=== PATIENT | female | born 1980 | race Caucasian/White ===

== ENCOUNTER 2021-01-13 07:59 | Day surgery (SDC) | payer BC, OTHER ==
[~2021-01-13] VITALS: Ht 160 cm; Wt 59.8 kg
[~2021-01-13 07:59] MED LIST: BUPIVACAINE/PF 0.25% ONE; FEXO1TAB29 PO; MULT-124 PO; WHEA1POW5 PO; [UNRECOGNIZED DRUG - CODE] PO
[2021-01-13] MEDS ORDERED: CHLORHEXIDINE 15 ML UDC MM ONE (08:30)
[2021-01-13] MEDS ORDERED: LACTATED RINGERS 1,000 ML IV SCH (09:00)
[2021-01-13] MEDS ORDERED: FENTANYL PF 250 MCG/5ML ONE (11:13)
[2021-01-13] MEDS ORDERED: PROPOFOL 10 MG/ML, 20ML ONE (11:13)
[2021-01-13] MEDS ORDERED: LIDOCAINE-MPF 2% ,5ML ONE (11:13)
[2021-01-13] MEDS ORDERED: ROCURONIUM 10MG/ML,5ML ONE (11:13)
[2021-01-13] MEDS ORDERED: CEFAZOLIN 1,000 MG ONE ×2 (11:44→11:45)
[2021-01-13] MEDS ORDERED: DEXAMETHASONE 4 MG/ML, 1ML ONE ×2 (11:51)
[2021-01-13] MEDS ORDERED: PROMETHAZINE 25 MG/ML, 1ML IVPush PRN (12:30)
[2021-01-13] MEDS ORDERED: ONDANSETRON 2MG/ML, 2ML IVPush PRN (12:30)
[2021-01-13] MEDS ORDERED: OXYcodone 5 MG/5 ML ORAL.SOL UDC PO PRN (12:30)
[2021-01-13] MEDS ORDERED: ACETAMINOPHEN 325 MG TABLET PO PRN (12:30)
[2021-01-13] MEDS ORDERED: ONDANSETRON 2MG/ML, 2ML ONE ×2 (13:27)
[2021-01-13] MEDS ORDERED: KETOROLAC 30 MG/1 ML ONE (13:27)
[2021-01-13] MEDS ORDERED: SUGAMMADEX 200 MG/2 ML IVPush ONE (13:27)
[2021-01-13] MEDS ORDERED: FENTANYL PF 100 MCG/2ML ONE (13:54)
[2021-01-13] MEDS ORDERED: ACETAMINOPHEN 650 MG/20.3 ML UDC ONE (13:54)
[2021-01-13] MEDS: FENTANYL PF 100 MCG/2ML IV PRN ×4 (13:57→14:47)
[2021-01-13] MEDS ORDERED: MEPERIDINE/PF 25MG/ML,1ML ONE (14:00)
[2021-01-13] MEDS ORDERED: OXYcodone 5 MG/5 ML ORAL.SOL UDC ONE (14:19)
[2021-01-13] MEDS ORDERED: MEPERIDINE/PF 25MG/0.5ML IVPush PRN (15:30)
== END 2021-01-13 19:45 | disposition home or self-care (01) ==
LOC: OUT 07:59
PROVIDERS: ATTEND Specialist
DX: D25.9 Leiomyoma of uterus, unspecified (principal); N92.0 Excessive and frequent menstruation with regular cycle; N94.6 Dysmenorrhea, unspecified
CPT/HCPCS: 58573; 81025; 88307; J0690; J1100; J1885; J2175; J2405; J2704; J3010; J7120; S2900